=== PATIENT | male | born 1955 | race Caucasian/White ===

== ENCOUNTER → 2017-06-19 | Outpatient (CLI) | payer BC ==
[~2017-06-19] MED LIST: GINK40CA PO; MULT-974 PO; ZOLP5TAB7 PO
== END ==
LOC: PREOP 09:50
PROVIDERS: ATTEND Surgery
DX: Z01.818 Encounter for other preprocedural examination (principal); Z12.11 Encounter for screening for malignant neoplasm of colon; Z86.010 Personal history of colon polyps

== ENCOUNTER → 2017-06-21 | Day surgery (SDC) | payer BC ==
[~2017-06-21] MED LIST changes: +ACETAMINOPHEN 325 MG TABLET/CAPLET (TYLENOL) PO PRN; +HYDROcodone/APAP 5 MG/325 MG (LORTAB) TAB PO PRN; +LIDOCAINE JELLY 2% (XYLOCAINE) 5 ML TUBE MM PRN; +LIDOCAINE JELLY 2% (XYLOCAINE) 5 ML TUBE ONE; +MIDAZOLAM 2 MG/2 ML (VERSED) VIAL ONE; +NS IV 500 ML 500 ML IV PRN; +ONDANSETRON 4 MG/2 ML (SDV) Z0FRAN IV PRN; +fentaNYL INJECTION 100 MCG/2 ML AMP ONE; +morphine INJ 10 MG/ML 1ML (SYR OR VIAL) IV PRN
[2017-06-21 12:45] VITALS: BP 126/68
--- NOTE | 2017-06-21 12:58 | Conscious Sedation/ASA ---
Conscious Sedation Pre-Proced Time Reviewed: 12:45 ASA Class: 2 Airway Mallampati Classification: ([place] appropriate class) I. II. III, IV Lungs Heart ASA score ASA 1: a normal healthy patient ASA 2: a patient with a mild systemic disease (mid diabetes, controlled hypertension, obesity ASA 3: a patient with a severe systemic disease that limits activity (angina , COPD, prior Myocardial infarction) ASA 4: a patient with an incapacitating disease that is a constant threat to life (CHF, renal failure) ASA 5: a moribund patient not expected to survive 24 hrs. (ruptured aneurysm) ASA 6: a declared brain patient whose organs are being harvested. For emergent operations, add the letter E after the classification Grade 2 Sedation Plan: Analgesia, Amnesia, Plan communicated to team members, Discussed options with patient/fam, Discussed risks with patient/fam Note The patient is an appropriate candidate to undergo the planned procedure, sedation, and anesthesia. The patient immediately re-assessed prior to indication. AMARIS MCGUIRE MD Jun 21, 2017 12:58 pm
--- NOTE | 2017-06-21 12:59 | Progress Note-Pre Operative ---
Pre-Operative Progress Note H&P Reviewed The H&P was reviewed, patient examined and no changes noted. Date Seen by Provider: Jun 21, 2017 Time Seen by Provider: 12:45 Date H&P Reviewed: Jun 21, 2017 Time H&P Reviewed: 12:45 Pre-Operative Diagnosis: screening colonoscopy AMARIS MCGUIRE MD Jun 21, 2017 12:59 pm
[2017-06-21] MEDS: fentaNYL INJECTION 100 MCG/2 ML AMP IVP PRN ×4 (13:33→13:53)
[2017-06-21] MEDS: MIDAZOLAM 2 MG/2 ML (VERSED) VIAL IVP PRN ×5 (13:34→13:49)
--- NOTE | 2017-06-21 14:16 | Progress Note-Post Operative ---
Post-Operative Progess Note Surgeon (s)/Washery Engineer (s) Surgeon AMARIS MCGUIRE MD Washery Engineer: none Pre-Operative Diagnosis screening colonoscopy Post-Operative Diagnosis chronic stage 2 ext and int hemorrhoids, small HP rectum(2mm), moderate sigmoid diverticulosis. Procedure & Operative Findings Date of Procedure 06/21/17 Procedure Performed/Findings Colonoscopy with bx. Anesthesia Type CS Estimated Blood Loss Estimated blood loss (mL): minimal Specimens/Packing Specimens Removed rectal polyp AMARIS MCGUIRE MD Jun 21, 2017 2:16 pm
--- NOTE | 2017-06-21 14:18 | Discharge Inst-Surgical ---
D/C Lap Instructions-MAYNOR Follow Up 5 years. Activity as tolerated High Fiber Diet 25g or more per day Avoid Alcohol, Caffeine, Spicy Kiefer and Acid foods. Drink 64 fluid oz or more of fluids per day. Symptoms to Report: Fever over 101 degree F, Nausea/Vomiting If any problems/questions: Contact your physician or go to Emergency Room AMARIS MCGUIRE MD Jun 21, 2017 2:18 pm
[2017-06-21 14:30] VITALS: BP 97/55
[2017-06-21 15:00] VITALS: BP 98/69
[2017-06-21 15:05] VITALS: BP 98/69
--- NOTE | 2017-06-21 15:32 | OPERATIVE REPORT ---
DATE OF SERVICE: 06/21/2017 ATTENDING PRIMARY CARE PHYSICIAN: Dr. Celestina Palacios. PREOPERATIVE DIAGNOSIS: History of colon polyps. POSTOPERATIVE DIAGNOSES: 1. Chronic stage II external and internal hemorrhoids. 2. Small hyperplastic polyp of the rectum, 2 mm in size. 3. Moderate sigmoid diverticulosis. PROCEDURE: Colonoscopy with biopsy. SURGEON: Dr. Mcguire. ANESTHESIA: Conscious sedation. ESTIMATED BLOOD LOSS: Minimal. FINDINGS: Chronic stage II external and internal hemorrhoids. Prostate gland was palpable and appeared normal. Small 2 mm hyperplastic polyp in the rectum, moderate sigmoid diverticulosis. The remainder of the colon was normal. DISPOSITION: The patient tolerated the procedure well. INDICATIONS: The patient is a 62-year-old male referred over to us for followup colonoscopy. This gentleman reports that he is doing well and does not have any major issues with constipation, no diarrhea as well as no red blood per rectum nor any dark tarry stools. He has had two colonoscopies done in the past with the first one done in 2008 where he believes four to five polyps were identified including an adenomatous polyp with the recommendation for a followup colonoscopy in 3 years. He did undergo a second colonoscopy in 2011 with there were 2 polyps identified which were completely benign. The recommendation at that time was to follow up in 5 years sounding to be more consistent with a hyperplastic polyp. He does have a remote family history of colon cancer with his maternal grandfather having the disease. DESCRIPTION OF PROCEDURE: The patient was brought to the endoscopy suite, laid in the left lateral decubitus position. After adequate IV pain and sedative medications and conscious sedation anesthesia, a digital rectal examination was performed. Chronic stage II external and internal hemorrhoids were identified and were not actively edematous, not inflamed nor bleeding. Normal sphincter tone was felt and there were no palpable masses. Prostate gland was palpable and appeared normal. The endoscope was then intubated into the anus and rectum gently insufflated. A small hyperplastic polyp of the distal rectum was identified which was approximately 2 mm in size and consistent with a benign hyperplastic polyp. This was biopsied and destroyed using forceps and electrocautery with visualization of good hemostasis. Endoscope was then advanced through the remainder of the rectum, which was normal. We then proceeded through the sigmoid colon where a moderate sigmoid diverticulosis identified. There were no mucosal inflammatory changes to indicate any active diverticulitis. The endoscope was then advanced through the remainder of the descending, transverse, ascending colon and the cecum. These segments were normal. There were no other lesions identified. The endoscope was then slowly withdrawn taking a second look and suctioning residual air with no additional findings. The patient tolerated the procedure well. We will continue with medical management with high fiber diet with at least 30 grams of fiber per day as well as at least 64 fluid ounces of water daily to promote soft stools on a daily basis. We will recommend a followup colonoscopy in approximately 5 years. Job ID: [id number] DocumentID: [id number] Dictated Date: 06/21/2017 14:04:01 Relocation Associate Date: 06/21/2017 15:32:06 Dictated By: AMARIS MCGUIRE MD MTDD
== END | disposition home or self-care (01) ==
LOC: ENDO 12:28
PROVIDERS: ATTEND Surgery
DX: Z12.11 Encounter for screening for malignant neoplasm of colon (principal); K62.1 Rectal polyp; K57.30 Diverticulosis of large intestine without perforation or abscess without bleeding; K64.1 Second degree hemorrhoids; Z86.010 Personal history of colon polyps; G47.00 Insomnia, unspecified; Z79.899 Other long term (current) drug therapy

== ENCOUNTER 2019-02-05 06:15 | Outpatient (CLI) | payer BC ==
[~2019-02-05 06:15] MED LIST changes: -ACETAMINOPHEN 325 MG TABLET/CAPLET (TYLENOL) PO PRN; -HYDROcodone/APAP 5 MG/325 MG (LORTAB) TAB PO PRN; -LIDOCAINE JELLY 2% (XYLOCAINE) 5 ML TUBE MM PRN; -LIDOCAINE JELLY 2% (XYLOCAINE) 5 ML TUBE ONE; -MIDAZOLAM 2 MG/2 ML (VERSED) VIAL ONE; -NS IV 500 ML 500 ML IV PRN; -ONDANSETRON 4 MG/2 ML (SDV) Z0FRAN IV PRN; -fentaNYL INJECTION 100 MCG/2 ML AMP ONE; -morphine INJ 10 MG/ML 1ML (SYR OR VIAL) IV PRN
[2019-02-05] MEDS ORDERED: ZALE5CAP PO (11:38)
== END 2019-02-05 11:41 | disposition home or self-care (01) ==
LOC: PREOP 06:15
PROVIDERS: ATTEND Specialist
DX: Z01.818 Encounter for other preprocedural examination (principal)

== ENCOUNTER 2019-02-06 10:15 | Day surgery (SDC) | payer BC ==
[~2019-02-06] VITALS: Ht 185.4 cm; Wt 86.2 kg
[~2019-02-06 10:15] MED LIST changes: +ZALE5CAP PO
[2019-02-06 10:20] VITALS: BP 133/72
[2019-02-06] MEDS: TETRACAINE 0.5% OPHTH SOLN 4 ML BTL (SINGLE DOSE ONLY) OU PRN ×3 (10:33→10:51)
[2019-02-06] MEDS: TROPICAMIDE 1% OPH SOLN (MYDRIACYL) 15 ML BTL OU PRN ×3 (10:34→10:52)
[2019-02-06] MEDS: PHENYLEPHRINE 10% OPHTH (NEO-SYN) 5 ML BTL OU PRN ×3 (10:34→10:51)
[2019-02-06 11:23] VITALS: BP 133/72
--- NOTE | 2019-02-06 11:24 | Ophthalmologist Pre-Op Note ---
Pre-Operative Progress Note H&P Reviewed The H&P was reviewed, patient examined and no changes noted. Date H&P Reviewed: Feb 06, 2019 Time H&P Reviewed: 11:15 Pre-Op Dx Secondary Cataract, Right Eye CHASIDY SHANNON MD Feb 06, 2019 11:24
--- NOTE | 2019-02-06 11:24 | Ophthalmology Operative Report ---
YAG Capsulotomy PREOPERATIVE DIAGNOSIS: Secondary Cataract Right Eye POSTOPERATIVE DIAGNOSIS: Secondary Cataract Right Eye PROCEDURE: YAG Capsulotomy, right eye SURGEON: Jean Pierre Shannon ANESTHESIA: Topical anesthesia COMPLICATIONS: None ESTIMATED BLOOD LOSS: Minimal DESCRIPTION OF PROCEDURE: After proper informed consent was obtained, the patient's, a 63 male, right eye received one drop of Tropicamide and one drop of Tetracaine. The patient was then placed at the YAG laser and using a power of [ 3.8] millijoules and [ 14] bursts were used to fashion a central capsulotomy. The patient tolerated the procedure well without complications and the patient's pressure was [12 ] shortly after the laser. JEAN PIERRE SHANNON MD Feb 06, 2019 11:24
== END 2019-02-06 11:20 | disposition home or self-care (01) ==
LOC: SDC 10:15
PROVIDERS: ATTEND Specialist
DX: H26.491 Other secondary cataract, right eye (principal); F41.9 Anxiety disorder, unspecified; Z87.891 Personal history of nicotine dependence; Z79.899 Other long term (current) drug therapy

== ENCOUNTER 2019-02-11 12:25 | Day surgery (SDC) | payer BC ==
[~2019-02-11] VITALS: Ht 185.4 cm; Wt 86.2 kg
[2019-02-11 12:25] VITALS: BP 111/62
--- OUTSIDE RECORDS SUMMARY | 2019-02-11 12:34 | XMS REPORT | Clinical Summary ---
Author Author [facility] Organization [facility] Address Unknown Phone Unavailable Care Team Providers Care Electro Mechanical Assembler Name Role Phone Leatha Pablo JUNG Unavailable Jessika Vaz Unavailable Celestina Palacios MD PCP Gordo Palacios MD Unavailable Source Comments Some departments are not documenting in the electronic medical record. If you do not see the information that you expected, contact Release of Information in the Health Information Management department at [phone] for further assistance in locating additional records.[facility] Allergies Comments Active Allergy Reactions Severity Noted Date Seasonal Allergies RHINITIS Low 04/05/2015 Medications End Date Status Medication Sig Dispensed Refills Start Date Active Ginkgo Biloba 40 mg tab Take 120 mg 0 by mouth. Active zaleplon(+) (SONATA) 10 TAKE ONE 90 capsule 0 01/02/201 mg capsule CAPSULE BY 8 MOUTH AT BEDTIME Active Multivitamins with Take by 0 Fluoride (MULTI-VITAMIN mouth. PO) Active eszopiclone (LUNESTA) 3 Take one 30 tablet 5 11/27/201 mg tablet tablet by 9 mouth at bedtime as needed for Sleep. Active Problems Problem Noted Date Sick sinus syndrome 09/16/2015 Overview: 07/22/15: Echocardiogram: Normal LV function. EF 65%. Mild left atrial enlargement. Mild aortic and mitral valve sclerosis. 08/22/15: Stress Echo: No ischemia. No CT. Normal LV function with EF 60%. Fatigue 09/16/2015 Depression 09/16/2015 Hyperlipidemia 09/16/2015 Bradycardia 09/16/2015 Dyspnea 09/16/2015 RONI (obstructive sleep apnea) 04/06/2015 Overview: PSG 10/02/2014 [facility] sleep medicine AHI 6.3 O2 Heriberto 86%, Time <88% 12 minutes Not on therapy. Did not notice improvement in sleep L ast Assessment & Plan: He never noticed any improvement with CPAP therapy therefore we will hold for now. Insomnia 04/05/2015 Overview: He has a long history of severe chronic insomnia. He has been taking zolpidem, zaleplon and Benadryl on a nightly basis. Medication tried Benadryl Sonata Ambien L ast Assessment & Plan: For now he would like to continue taking his combination of Sonata and Ambien 5 mg. This seems to be working well for him. 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 Return to clinic in 1 year or sooner if problems. Family History Medical History Relation Name Comments Pulmonary Fibrosis Father Relation Name Status Comments Father Mother Alive Social History Date Tobacco Use Types Packs/Day Years Used Former Smoker Cigarettes Smokeless Tobacco: Former User Alcohol Use Drinks/Week oz/Week Comments Yes 14 Glasses of 8.4 wine Sex Assigned at Date Recorded Not on file Industry Job Start Date Occupation Not on file Not on file Not on file Travel End Travel History Travel Start No recent travel history available. Last Filed Vital Signs Time Taken Vital Sign Reading 06/13/2018 3:33 PM CDT Blood Pressure 134/77 06/13/2018 3:33 PM CDT Pulse 44 06/13/2018 3:33 PM CDT Temperature 36.9 C (98.5 F) 06/13/2018 3:33 PM CDT Respiratory Rate 16 06/13/2018 3:33 PM CDT Oxygen Saturation 98% - Inhaled Oxygen - Concentration 06/13/2018 3:33 PM CDT Weight 81.4 kg (179 lb 6.4 oz) 06/13/2018 3:33 PM CDT Height 185.4 cm (6' 1") 06/13/2018 3:33 PM CDT Body Mass Index 23.67 Plan of Treatment Health Maintenance Due Date Last Done Comments HEPATITIS C SCREENING 1954 PHYSICAL (COMPREHENSIVE) 1961 EXAM HIV SCREENING 1969 DTAP/TDAP VACCINES (1 - 1972 Tdap) COLORECTAL CANCER 2004 SCREENING SHINGLES RECOMBINANT 2004 VACCINE (1 of 2) INFLUENZA VACCINE 06/18/2018 Results Not on filefrom Last 3 Months Insurance Type Payer Benefit Subscriber ID Effective Phone Address Plan / Dates Group PPO BCBS [facility] xxxxxxxxxxxx 2014-P [facility] resent [place] Advance Directives Patient has advance care planning documents on file. For more information, please contact: [facility] [address] [place] [address]
--- OUTSIDE RECORDS SUMMARY | 2019-02-11 12:34 | XMS REPORT | Continuity of Care Document ---
Author Author [facility] Organization [facility] Address Unknown Phone Unavailable Allergies Active Description Code Type Severity Reaction Onset Reported/Identified Relationship to Patient Clinical Status Yes No Known Drug Allergies [id number] Drug Allergy Unknown N/A 05/20/2012 Medications There is no data. Problems Date Dx Coded Attending Type Code Diagnosis Diagnosed By 09/27/2014 SADIA DENNY MD Ot 327.23 09/12/2015 DIMAS PAYAN FAC, OZIEL CAREY CCDS Ot I49.5 09/12/2015 DIMAS PAYAN FAC, OZIEL TREVINOP CCDS Ot R53.83 09/12/2015 DIMAS PAYAN FAC, OZIEL TREVINOP CCDS Ot Z72.0 06/20/2017 AMARIS MCGUIRE MD Ot Z01.818 ENCOUNTER FOR OTHER PREPROCEDURAL EXAMIN 06/20/2017 AMARIS MCGUIRE MD Ot Z12.11 ENCOUNTER FOR SCREENING FOR MALIGNANT NE 06/20/2017 AMARIS MCGUIRE MD Ot Z86.010 PERSONAL HISTORY OF COLONIC POLYPS 06/26/2017 AMARIS MCGUIRE MD Ot G47.00 INSOMNIA, UNSPECIFIED 06/26/2017 AMARIS MCGUIRE MD Ot K57.30 DVRTCLOS OF LG INT W/O PERFORATION OR AB 06/26/2017 AMARIS MCGUIRE MD Ot K62.1 RECTAL POLYP 06/26/2017 AMARIS MCGUIRE MD, Ot K64.1 SECOND DEGREE HEMORRHOIDS 06/26/2017 AMARIS MCGUIRE MD Ot Z12.11 ENCOUNTER FOR SCREENING FOR MALIGNANT NE 06/26/2017 AMARIS MCGUIRE MD Ot Z79.899 OTHER ALF (CURRENT) DRUG THERAPY 06/26/2017 AMARIS MCGUIRE MD Ot Z86.010 PERSONAL HISTORY OF COLONIC POLYPS 06/28/2017 AMARIS MCGUIRE MD, Ot G47.00 INSOMNIA, UNSPECIFIED 06/28/2017 AMARIS MCGUIRE MD Ot K57.30 DVRTCLOS OF LG INT W/O PERFORATION OR AB 06/28/2017 AMARIS MCGUIRE MD Ot K62.1 RECTAL POLYP 06/28/2017 AMARIS MCGUIRE MD Ot K64.1 SECOND DEGREE HEMORRHOIDS 06/28/2017 AMARIS MCGUIRE MD Ot Z12.11 ENCOUNTER FOR SCREENING FOR MALIGNANT NE 06/28/2017 AMARIS MCGUIRE MD Ot Z79.899 OTHER BOOK TRIMMER (CURRENT) DRUG THERAPY 06/28/2017 AMARIS MCGUIRE MD Ot Z86.010 PERSONAL HISTORY OF COLONIC POLYPS 07/01/2017 AMARIS MCGUIRE MD Ot G47.00 INSOMNIA, UNSPECIFIED 07/01/2017 AMARIS MCGUIRE MD Ot K57.30 DVRTCLOS OF LG INT W/O PERFORATION OR AB 07/01/2017 AMARIS MCGUIRE MD Ot K62.1 RECTAL POLYP 07/01/2017 AMARIS MCGUIRE MD Ot K64.1 SECOND DEGREE HEMORRHOIDS 07/01/2017 AMARIS MCGUIRE MD Ot Z12.11 ENCOUNTER FOR SCREENING FOR MALIGNANT NE 07/01/2017 AMARIS MCGUIRE MD Ot Z79.899 OTHER ALF (CURRENT) DRUG THERAPY 07/01/2017 AMARIS MCGUIRE MD Ot Z86.010 PERSONAL HISTORY OF COLONIC POLYPS 07/15/2017 AMARIS MCGUIRE MD Ot G47.00 INSOMNIA, UNSPECIFIED 07/15/2017 AMARIS MCGUIRE MD Ot K57.30 DVRTCLOS OF LG INT W/O PERFORATION OR AB 07/15/2017 AMARIS MCGUIRE MD Ot K62.1 RECTAL POLYP 07/15/2017 AMARIS MCGUIRE MD Ot K64.1 SECOND DEGREE HEMORRHOIDS 07/15/2017 AMARIS MCGUIRE MD Ot Z12.11 ENCOUNTER FOR SCREENING FOR MALIGNANT NE 07/15/2017 AMARIS MCGUIRE MD Ot Z79.899 OTHER ALF (CURRENT) DRUG THERAPY 07/15/2017 AMARIS MCGUIRE MD Ot Z86.010 PERSONAL HISTORY OF COLONIC POLYPS 02/05/2019 CHASIDY SHANNON MD Ot Z01.818 ENCOUNTER FOR OTHER PREPROCEDURAL EXAMIN 02/09/2019 CHASIDY SHANNON MD Ot F41.9 ANXIETY DISORDER, UNSPECIFIED 02/09/2019 CHASIDY SHANNON MD Ot H26.491 OTHER SECONDARY CATARACT, RIGHT EYE 02/09/2019 CHASIDY SHANNON MD Ot Z79.899 OTHER ALF (CURRENT) DRUG THERAPY 02/09/2019 CHASIDY SHANNON MD Ot Z87.891 PERSONAL HISTORY OF NICOTINE DEPENDENCE Procedures There is no data. Results There is no data. Encounters ACCT No. Visit Date/Time Discharge Status Pt. Type Provider Facility Loc./Unit Complaint [id number] 02/06/2019 10:15:00 02/06/2019 23:59:59 CLS Outpatient CHASIDY SHANNON MD [facility] SDC YAG [id number] 02/05/2019 06:15:00 02/05/2019 11:41:00 DIS Outpatient CHASIDY SHANNON MD [facility] PREOP YAG [id number] 06/21/2017 12:28:00 06/21/2017 23:59:59 CLS Outpatient AMARIS MCGUIRE MD [facility] ENDO SCREENING,HISTORY OF POLYPS [id number] 06/19/2017 09:50:00 06/19/2017 23:59:59 CLS Outpatient AMARIS MCGUIRE MD [facility] PREOP SCREENING,HISTORY OF POLYPS [id number] 08/22/2015 10:22:00 08/22/2015 23:59:59 CLS Outpatient DIMAS PAYAN FACCOZIEL FACP CCDS [facility] CARD [id number] 09/27/2014 10:30:00 09/27/2014 11:15:00 DIS Outpatient SADIA DENNY MD [facility] SLEEP [id number] 02/11/2019 12:25:00 ACT Outpatient CHASIDY SHANNON MD [facility] SDC CATARACT LEFT EYE
[2019-02-11] MEDS: TETRACAINE 0.5% OPHTH SOLN 4 ML BTL (SINGLE DOSE ONLY) OU PRN ×4 (12:42→13:10)
[2019-02-11] MEDS ORDERED: POVIDONE (BETADINE) OPHTH SOLN 5% 30 ML OP ONE (12:45)
[2019-02-11] MEDS ORDERED: LIDOCAINE PF 1% 2 ML AMP IR PRN (12:45)
[2019-02-11] MEDS ORDERED: TIMOLOL MALEATE 0.5% 5 ML (TIMOPTIC) BTL OU PRN (12:45)
[2019-02-11] MEDS ORDERED: MOXIFLOXACIN OPHTH SOLN 5 MG/ML 0.3 ML SYRINGE OP ONE (12:45)
[2019-02-11] MEDS: PHENYLEPHRINE 10% OPHTH (NEO-SYN) 5 ML BTL OU SCH ×3 (12:55→13:10)
[2019-02-11] MEDS: CYCLOPENTOLATE 1% (CYCLOGYL) 2 ML DROPS OP SCH ×3 (12:55→13:10)
[2019-02-11] MEDS ORDERED: MIDAZOLAM 2 MG/2 ML (VERSED) VIAL ONE (12:56)
--- NOTE | 2019-02-11 13:13 | Anesthesia-General Post-Op ---
MAC Patient Condition Mental Status/LOC: Same as Preop Cardiovascular: Satisfactory Nausea/Vomiting: Absent Respiratory: Satisfactory Pain: Controlled Complications: Absent Post Op Complications Complications None Follow Up Care/Instructions Patient Instructions None needed. Anesthesiology Discharge Order Discharge Order Patient is doing well, no complaints, stable vital signs, no apparent adverse anesthesia problems. No complications reported per nursing. LINK SHABAZZ CRNA Feb 11, 2019 13:13
--- NOTE | 2019-02-11 13:25 | Ophthalmologist Pre-Op Note ---
Pre-Operative Progress Note H&P Reviewed The H&P was reviewed, patient examined and no changes noted. Date H&P Reviewed: Feb 11, 2019 Time H&P Reviewed: 13:25 Pre-Op Dx Cataract, Left Eye HCASIDY SHANNON MD Feb 11, 2019 13:25
--- NOTE | 2019-02-11 13:59 | Ophthalmology Operative Report ---
Cataract removal/placement IOL PREOPERATIVE DIAGNOSIS: Cataract Left Eye POSTOPERATIVE DIAGNOSIS: Cataract Left Eye PROCEDURE: Cataract removal and placement of posterior chamber implant, left eye SURGEON: Jean Pierre Shannon ANESTHESIA: Topical with sedation COMPLICATIONS: None ESTIMATED BLOOD LOSS: Minimal DESCRIPTION OF PROCEDURE: After proper informed consent was obtained, the patient, a 63 male, was taken to the Operating Room and the left eye was anesthetized with tetracaine. The left eye was then prepped and draped in the usual manner. A wire lid speculum was placed. A paracentesis was made at the left hand position. Preservative free lidocaine was injected into the anterior chamber followed by viscoelastic. A clear corneal incision was made in the temporal position. A capsulorrhexis was preformed and the central nuclear and cortical material were removed. The posterior capsule was polished and an Erik [id number] 22.0 was placed into the capsular bag. The residual viscoelastic was aspirated and balanced saline solution was injected into the anterior chamber. Moxifloxacin was injected into the anterior chamber. The wound was checked and found to be water tight. The patient tolerated the procedure well without complications. JEAN PIERRE SHANNON MD Feb 11, 2019 13:59
[2019-02-11] MEDS ORDERED: acetaZOLAMIDE ER 500 MG CAP (DIAMOX SEQUELS) PO ONE (14:00)
[2019-02-11 14:10] VITALS: BP 111/87
== END 2019-02-11 14:10 | disposition home or self-care (01) ==
LOC: SDC 12:25
PROVIDERS: ATTEND Specialist
DX: H25.12 Age-related nuclear cataract, left eye (principal); F41.9 Anxiety disorder, unspecified; Z87.891 Personal history of nicotine dependence; Z79.899 Other long term (current) drug therapy

== ENCOUNTER → 2019-10-23 | Outpatient (CLI) | payer BC ==
[~2019-10-23] MED LIST changes: +ASPI-999 PO; +ATOR80TA76 PO; +CEPH500T PO; +ESZO3TAB30 PO; -GINK40CA PO; +GINK40CA5 PO; +TEST30SO3 TD; +TEST75GE3 TD; +ZALE10CA PO; +[UNRECOGNIZED DRUG - OTHER] SL
== END ==
LOC: CARD 12:32
PROVIDERS: ATTEND Internal Medicine Cardiovascular Disease
DX: I45.10 Unspecified right bundle-branch block (principal); I45.89 Other specified conduction disorders; R53.83 Other fatigue
CPT/HCPCS: 93225; 93226

== ENCOUNTER → 2019-10-23 | Outpatient (CLI) | payer BC ==
[~2019-10-23] MED LIST changes: -CEPH500T PO
== END ==
LOC: CARD 12:30
PROVIDERS: ATTEND Family Medicine
DX: I49.5 Sick sinus syndrome (principal); I45.10 Unspecified right bundle-branch block; R53.83 Other fatigue; Z95.810 Presence of automatic (implantable) cardiac defibrillator
CPT/HCPCS: 93306

== ENCOUNTER 2019-10-28 05:35 | Outpatient (CLI) | payer BC ==
[~2019-10-28] VITALS: Ht 185.5 cm; Wt 77.3 kg
[~2019-10-28 05:35] MED LIST changes: -ASPI-999 PO; -ATOR80TA76 PO; -ESZO3TAB30 PO; -TEST30SO3 TD; -TEST75GE3 TD; -ZALE10CA PO; -[UNRECOGNIZED DRUG - OTHER] SL
[2019-10-28] MEDS ORDERED: ESZO3TAB30 PO (12:17)
[2019-10-28] MEDS ORDERED: TEST30SO3 TD (12:17)
[2019-10-30] MEDS ORDERED: ZALE10CA PO (13:46)
[2019-10-30] MEDS ORDERED: TEST75GE3 TD (13:52)
[2019-10-30] MEDS ORDERED: [UNRECOGNIZED DRUG - OTHER] SL (13:55)
[2019-10-30] MEDS ORDERED: ATOR80TA76 PO (15:58)
[2019-10-30] MEDS ORDERED: ASPI-999 PO (15:58)
== END 2019-10-28 12:30 ==
LOC: PREOP 05:35
PROVIDERS: ATTEND Specialist
DX: Z01.818 Encounter for other preprocedural examination (principal)

== ENCOUNTER 2019-10-30 10:52 | Day surgery (SDC) | payer BC ==
[~2019-10-30] VITALS: Ht 185 cm; Wt 77.3 kg
[~2019-10-30 10:52] MED LIST changes: +ESZO3TAB30 PO; +TEST30SO3 TD
[2019-10-30] MEDS: TETRACAINE 0.5% OPHTH SOLN 4 ML BTL (SINGLE DOSE ONLY) OU PRN ×3 (11:07→11:19)
[2019-10-30 11:10] VITALS: BP 118/69
[2019-10-30] MEDS ORDERED: TROPICAMIDE 1% OPH SOLN (MYDRIACYL) 15 ML BTL OU PRN (11:15)
[2019-10-30] MEDS ORDERED: PHENYLEPHRINE 10% OPHTH (NEO-SYN) 5 ML BTL OU PRN (11:15)
--- NOTE | 2019-10-30 11:29 | Ophthalmologist Pre-Op Note ---
Pre-Operative Progress Note H&P Reviewed The H&P was reviewed, patient examined and no changes noted. Date H&P Reviewed: Oct 30, 2019 Time H&P Reviewed: 11:29 Pre-Op Dx Secondary Cataract, Right Eye CHASIDY SHANNON MD Oct 30, 2019 11:29 POS
[2019-10-30 11:50] VITALS: BP 118/69
--- NOTE | 2019-10-30 11:53 | Ophthalmology Operative Report ---
YAG Capsulotomy PREOPERATIVE DIAGNOSIS: Secondary Cataract Left Eye POSTOPERATIVE DIAGNOSIS: Secondary Cataract Left Eye PROCEDURE: YAG Capsulotomy, left eye SURGEON: Jean Pierre Shannon ANESTHESIA: Topical anesthesia COMPLICATIONS: None ESTIMATED BLOOD LOSS: Minimal DESCRIPTION OF PROCEDURE: After proper informed consent was obtained, the patient's, a 64 male left eye received one drop of Tropicamide and one drop of Tetracaine. The patient was then placed at the YAG laser and using a power of [2.8 ] millijoules and [ 12] bursts were used to fashion a central capsulotomy. The patient tolerated the procedure well without complications. JEAN PIERRE SHANNON MD Oct 30, 2019 11:53 POS
[2019-10-30] MEDS ORDERED: ZALE10CA PO ×2 (13:46)
[2019-10-30] MEDS ORDERED: TEST75GE3 TD ×2 (13:52)
[2019-10-30] MEDS ORDERED: [UNRECOGNIZED DRUG - OTHER] SL ×2 (13:55)
[2019-10-30] MEDS ORDERED: ASPI-999 PO ×2 (15:58)
[2019-10-30] MEDS ORDERED: ATOR80TA76 PO ×2 (15:58)
== END 2019-10-30 11:50 | disposition home or self-care (01) ==
LOC: SDC 10:52
PROVIDERS: ATTEND Specialist
DX: H26.492 Other secondary cataract, left eye (principal); F41.9 Anxiety disorder, unspecified; Z79.899 Other long term (current) drug therapy; Z87.891 Personal history of nicotine dependence

== ENCOUNTER 2019-10-30 13:00 | Day surgery (SDC) | payer BC ==
[~2019-10-30] VITALS: Ht 185 cm; Wt 77.3 kg
[2019-10-30] VITALS (8 sets, daily range): BP systolic 99–135; BP diastolic 68–88
[2019-10-30] MEDS ORDERED: LIDOCAINE 1% INJ 20 ML 20 ML VIAL ONE (13:02)
[2019-10-30] MEDS ORDERED: HEParin 1000 UNIT/ML (10ML VIAL) FOR BOLUS ONE (13:02)
[2019-10-30] MEDS ORDERED: NS IV 1000 ML 1,000 ML ONE (13:03)
[2019-10-30] MEDS ORDERED: NS IV 1000 ML 2,000 ML ONE (13:03)
[2019-10-30] MEDS ORDERED: NS IV 1000 ML 1,000 ML IV SCH ×2 (13:04→15:54)
[2019-10-30 13:25] LABS: HEMOGLOBIN 13.8 G/DL (13.3-17.7); MEAN PLATELET VOLUME 9.8 FL (7.4-10.4); RED CELL DISTRIBUTION WIDTH 13.1 % (10.0-14.5); WHITE BLOOD COUNT 3.4 10^3/uL (4.3-11.0)
[2019-10-30] MEDS ORDERED: ZALE10CA PO ×2 (13:46)
[2019-10-30] MEDS ORDERED: TEST75GE3 TD ×2 (13:52)
[2019-10-30 13:53] LABS: INR 1.1 (0.8-1.4); PROTHROMBIN TIME PATIENT 14.2 SEC (12.2-14.7)
[2019-10-30 13:54] LABS: ALANINE AMINOTRANSFERASE 18 U/L (0-55); ALBUMIN 4.4 GM/DL (3.2-4.5); ALKALINE PHOSPHATASE 78 U/L (40-136); BILIRUBIN,TOTAL 0.4 MG/DL (0.1-1.0); BUN/CREATININE RATIO 15; CALCIUM 9.3 MG/DL (8.5-10.1); CARBON DIOXIDE 26 MMOL/L (21-32); CHLORIDE 106 MMOL/L (98-107); CHOLESTEROL 222 MG/DL (< 200); CREATININE SERUM 0.93 MG/DL (0.60-1.30); GFR ESTIMATED > 60; GLUCOSE 86 MG/DL (70-105); HDL CHOLESTEROL 72 MG/DL (40-60); POTASSIUM 4.4 MMOL/L (3.6-5.0); SODIUM 139 MMOL/L (135-145); TOTAL PROTEIN 7.7 GM/DL (6.4-8.2); TRIGLYCERIDES 81 MG/DL (<150); VLDL CHOLESTEROL 16 MG/DL (5-40)
[2019-10-30] MEDS ORDERED: [UNRECOGNIZED DRUG - OTHER] SL ×2 (13:55)
--- NOTE | 2019-10-30 13:56 | NUR ---
SPOKE WITH THE PT (HE HAD HIS HOME MEDS) AND CALLED [facility] TO COMPLETE THE MED REC.\ HE WAS ABLE TO TELL ME HOW/WHEN HE TAKES EACH MED. THE FOLLOWING [facility]: 03-24-2019 ZALEPLON #90/90DS 09-16-2019 LUNESTA #90/90DS 10-23-2019 TESTOSTERONE (MAIL ORDER) #1 /30DS OTC MEDS: MTV GINKO BILOBA CBD
[2019-10-30] MEDS ORDERED: fentaNYL INJECTION 100 MCG/2 ML AMP ONE (14:05)
[2019-10-30] MEDS ORDERED: MIDAZOLAM 5 MG/5 ML (VERSED) VIAL ONE (14:05)
[2019-10-30] MEDS ORDERED: diphenhydrAMINE 50 MG/ML INJ (BENADRYL) ONE (15:15)
[2019-10-30] MEDS ORDERED: ASPI-999 PO ×2 (15:58)
[2019-10-30] MEDS ORDERED: ATOR80TA76 PO ×2 (15:58)
--- NOTE | 2019-10-30 15:59 | Discharge Inst-Post CATH ---
Discharge Inst-CATH/EP Post Cardiac Cath/EP D/C Inst Follow Up/Plan F/u with Dr Ni next week ACTIVITY * Go Home directly and rest. * Limit activity of the leg (or wrist if it was used) for 7 days including aerobics, swimming, jogging, bicycling, etc. * Restrict stair-climbing for 7 days if possible, if not, climb up with your no n-cath leg, then bring together on the same step. * Avoid lifting, pushing, pulling or excessive movement of the affected ext remity for 7 days. * Customary sexual activity may be resumed after 2 days-use caution not to use a position that strains or causes pain to the affected extremity. * No driving for 24 hours. * NO SMOKING. * Avoid straining for bowel movements for 7 days. * Gentle walking on level ground is allowed. * Returning to work will depend on the type of procedure and the results. Your doctor will discuss this with you. CALL YOUR DOCTOR FOR ANY OF THE FOLLOWING: *If bleeding from the puncture site occurs- Apply gentle pressure to site with clean cloth and call your doctor or EMS. * If a knot or lump forms under the skin, increases in size, or causes pain. * If bruising appears to be worsening or moving further down your leg instead of disappearing. * Temperature above 101 F. CARE OF YOUR GROIN INCISION; * Bruising or purple discoloration of the skin near the puncture site is common. * You may shower only, no bathtub bathing for 5 days. Be careful to avoid slipping as your leg may feel stiff. * If a closure device was used on your femoral artery, please see the attached guide regarding care of the device and your leg. * Leave dressing on FOR 24 hours. CARE OF YOUR WRIST INCISION; * Bruising or purple discoloration of the skin near the puncture site is common. * You may shower. * DO NOT submerge wrist. * Leave dressing on FOR 24 hours. OZIEL NI MD FACP FAC CCDS Oct 30, 2019 15:59 POS
--- NOTE | 2019-10-30 15:59 | Discharge Inst-Cardiology ---
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
[2019-10-30] MEDS ORDERED: PATIENT MAY USE OWN MEDS, ALL PO SCH (16:00)
--- NOTE | 2019-10-30 17:50 | Cardiac Procedure Note-CS/ASA ---
Pre-Procedure Note Pre-Op Procedure Note H&P Reviewed The H&P was reviewed, patient examined and no changes noted. Date H&P Reviewed: Oct 30, 2019 Time H&P Reviewed: 15:20 Conscious Sedation Pre-Proced Time 15:20 ASA Score 3 For ASA 3 and 4: Consider anesthesia and medical clearance. Also, for patients with a history of failed moderate sedation consider anesthesia. Airway Lungs Heart ASA score ASA 1: a normal healthy patient ASA 2: a patient with a mild systemic disease (mid diabetes, controlled hypertension, obesity ASA 3: a patient with a severe systemic disease that limits activity (angina, COPD, prior Myocardial infarction) ASA 4: a patient with an incapacitating disease that is a constant threat to life (CHF, renal failure) ASA 5: a moribund patient not expected to survive 24 hrs. (ruptured aneurysm) ASA 6: a declared brain- patient whose organs are being harvested. For emergent operations, add the letter E after the classification Mallampati Classification Grade 2 Sedation Plan Analgesia, Amnesia, Plan communicated to team members, Discussed options with patient/fam, Discussed risks with patient/fam The patient is an appropriate candidate to undergo the planned procedure, sedation, and anesthesia. The patient immediately re-assessed prior to indication. OZIEL COCHRAN MD FACP FAC CCDS Oct 30, 2019 17:50 POS
--- NOTE | 2019-10-30 19:22 | CARDIAC CATHETERIZATION ---
DATE OF SERVICE: CARDIAC CATHETERIZATION REPORT The patient is a 64-year-old man who has symptoms of marked fatigue and the electrocardiogram is abnormal that indicates right bundle branch block that appears new since the last electrocardiogram of 2014. He has a history of tobacco use, which he quit in 2009. Cardiac catheterization was carried out today after having obtained an informed consent. DESCRIPTION OF PROCEDURE: The patient was brought to the cardiac catheterization laboratory in a fasting state. Right groin was prepared and draped in the usual sterile fashion. Lidocaine 1% was used for local anesthesia. Modified Seldinger technique was used to advance a 5-Kazakh sheath in the right femoral artery, 5-Kazakh JL4 catheter used for left coronary angiography, 5-Kazakh JR4 catheter used for right coronary angiography, 5-Kazakh pigtail catheter was used for left heart catheterization and left ventricular angiography. Angiography of the right femoral artery was carried out through the sheath. Mynx was used to achieve hemostasis. He tolerated the procedure well. HEMODYNAMICS: Left ventricular end-diastolic pressure following coronary angiography was 12 mmHg. There was no significant pressure gradient on pullback across the aortic valve. Ascending aortic pressure was 105/60 with a mean of 69 mmHg. CORONARY ANGIOGRAPHY: Left main coronary artery is free of significant disease. Left anterior descending artery has significant coronary calcification in its mid portion. There does not appear to be significant obstructive disease. Left circumflex artery is nondominant and does not exhibit significant disease. Right coronary artery is dominant and does not exhibit significant disease. LEFT VENTRICULAR ANGIOGRAPHY: Left ventricular angiography was carried out in right anterior oblique projection. Global left ventricular systolic function is normal. No regional wall motion abnormalities seen. Left ventricular ejection fraction is approximately 65% CONCLUSIONS: 1. Mild to moderate coronary artery disease consisting of approximately 40% mid vessel stenosis and coronary calcification. 2. Normal global left ventricular systolic function with ejection fraction approximately 60%. 3. Normal left ventricular end-diastolic pressure. DISCUSSION AND RECOMMENDATIONS: Based on results of the study, it appears appropriate to continue a conservative approach. Risk factor modification is advised. We advised the therapy with low dose aspirin and with statins. We have advised him to continue to refrain from tobacco use. Outpatient followup is advised. Job ID: [id number] DocumentID: [id number] Dictated Date: 10/30/2019 15:48:45 Press Reader Date: 10/30/2019 19:21:27 Dictated By: OZIEL COCHRAN MD, MA, FACP, FACC,
== END 2019-10-30 20:30 | disposition home or self-care (01) ==
LOC: CATH 13:00 → ICU 16:02 → CATH 20:30
PROVIDERS: ATTEND Internal Medicine Cardiovascular Disease
DX: I25.10 Atherosclerotic heart disease of native coronary artery without angina pectoris (principal); I45.10 Unspecified right bundle-branch block; I49.5 Sick sinus syndrome; G47.30 Sleep apnea, unspecified; H93.19 Tinnitus, unspecified ear; F17.210 Nicotine dependence, cigarettes, uncomplicated; F41.9 Anxiety disorder, unspecified; F32.9 Major depressive disorder, single episode, unspecified; Z79.899 Other long term (current) drug therapy; Z80.9 Family history of malignant neoplasm, unspecified; Z82.49 Family history of ischemic heart disease and other diseases of the circulatory system
CPT/HCPCS: 36415; 80053; 80061; 85027; 85610; 85730; 87081; 93453

== ENCOUNTER 2019-11-06 12:36 | Emergency (ER) | payer BC ==
[~2019-11-06] VITALS: Ht 185.4 cm; Wt 77.1 kg
[~2019-11-06 12:36] MED LIST changes: +ASPI-999 PO; +ATOR80TA76 PO; +TEST75GE3 TD; +ZALE10CA PO; +[UNRECOGNIZED DRUG - OTHER] SL
--- NOTE | 2019-11-06 13:32 | ED Lower Extremity ---
General Chief Complaint: General Problems/Pain Stated Complaint: HEMATOMA BLEEDING FROM CATH PROCEDURE Nursing Triage Note: PT AMB TO RM 8 WITH COMPLAINT OF SWELLING AROUND HEARTH CATH SIGHT RIGHT GROIN. STATES WENT TO DR JACKSON OFFICE ON SATURDAY. DENIES BEING ON A BLOOD THINNER, BUT DOES TAKE ASA. Nursing Sepsis Screen: No Definite Risk Source: patient Exam Limitations: no limitations (CASTILLO SOLIZ,LORENA STUDENT) History of Present Illness Date Seen by Provider: Nov 06, 2019 Time Seen by Provider: 13:02 Initial Comments Pt complains of bulge in right lower extremity near groin. States he underwent cardiac catheterization last week and states he has developed a hematoma two days later at catheter insertion site. Was seen by Dr. Cochran in clinic and was told to go to the ER. Denies leg swelling, pain, edema, chest pain, shortness of breath, headache. Takes a baby aspirin but no other blood thinners. Onset: last week Pain/Injury Location: right leg Method of Injury: other (catheter insertion) (CASTILLO SOLIZ MED STUDENT) Initial Comments Here with report of small amount of bleeding from the area of the heart catheter site to the right groin overnight. Also notes swelling in the area but not pulsating. Seen here for further evaluation. 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, 2 PUMP TD DAILY, (Reported) APPLIES TO THE RIGHT ARM Zaleplon 10 Mg Capsule, 10 MG PO PRN PRN for INSOMNIA, (Reported) TAKES IN THE MIDDLE OF THE NIGHT UPON AWAKENING [Cdb Oil] , 1,000 MG SL HS, (Reported) 1 DROPPERFUL IS 1000MG Patient Home Medication List Home Medication List Reviewed: Yes (CASTILLO SOLIZ,MED STUDENT) Home Medication List Reviewed: Yes (TYESHA BRADY MD) Review of Systems Constitutional: No chills, No fever; malaise (generalized malaise ongoing for years, working up with primary doc ) EENTM: No hearing loss, No ear pain, No eye pain, No vision loss Respiratory: No cough, No dyspnea on exertion, No short of breath Cardiovascular: No chest pain; Hx of Intervention Gastrointestinal: No abdominal pain, No constipation, No diarrhea, No nausea, No vomiting Genitourinary: No discharge, No incontinence, No pain Musculoskeletal: No back pain, No joint pain Skin: No lesions, No lumps Psychiatric/Neurological: Denies Anxiety, Denies Depressed (CASTILLO SOLIZ MED STUDENT) Constitutional: No chills, No fever Cardiovascular: No chest pain, No edema Gastrointestinal: No abdominal pain, No nausea, No vomiting Musculoskeletal: No joint pain; muscle pain Skin: change in color (TYESHA BRADY MD) Past Asxlebq-Khdpkt-Ypdgau Hx Past Med/Social Hx: Reviewed Nursing Past Med/Soc Hx (TYESHA BRADY MD) Patient Social History Alcohol Use: Regular Use Alcohol Beverage of Choice: Wine Recreational Drug Use: No Smoking Status: Never a Smoker Recent Foreign Travel: No Contact w/Someone Who Travel: No Recent Infectious Disease Expo: No Recent Hopitalizations: No Physical Abuse: No Sexual Abuse: No Mistreated: No Fear: No (CASTILLO SOLIZ MED STUDENT) Immunizations Up To Date Tetanus Booster (TDap): Unknown PED Vaccines UTD: Yes (CASTILLO SOLIZ MED STUDENT) Seasonal Allergies Seasonal Allergies: No (CASTILLO SOLIZ MED STUDENT) Past Medical History Orthopedic Respiratory: Yes (ASTHMA A CHILD) Sleep Apnea Currently Using CPAP: No (USED PREVIOUSLY) Cardiac: Yes (BRADYCARDIA) Irregular Heartbeat Neurological: Yes Concussion Reproductive Disorders: No Genitourinary: No Gastrointestinal: Yes Polyps Cancer: No Blood Disorders: No Adverse Reaction/Blood Tranf: No (CASTILLO SOLIZ MED STUDENT) Family Medical History Reviewed Nursing Family Hx (TYESHA BRADY MD) Physical Exam Vital Signs Vital Signs - First Documented 11/06/19 12:46 Pulse 82 Resp 20 B/P (MAP) 151/89 (109) Pulse Ox 99 O2 Delivery Room Air (TYESHA BRADY MD) Vital Signs Capillary Refill : Less Than 3 Seconds (CASTILLO SOLIZ,MED STUDENT) Height, Weight, BMI Height: 6'1.00" Weight: 190lbs. 0.0oz. 86.002969zw; 22.00 BMI Method: General Appearance: WD/WN, no apparent distress Neck: non-tender, supple Cardiovascular: regular rate, rhythm, no edema, no murmur, gallop/S3 Respiratory: chest non-tender, lungs clear, normal breath sounds, no respirat ory distress, no accessory muscle use Gastrointestinal: non tender, soft Back: no CVA tenderness, no vertebral tenderness Legs: right leg ecchymosis (large below catheterization site ), right leg swelling (3cm nodule, mild purplish discoloration at catheter site. Drains serosanginous fluid) Neurologic/Psychiatric: alert, oriented x 3 Skin: normal color, warm/dry (CASTILLO SOLZI,MED STUDENT) General Appearance: WD/WN, no apparent distress Cardiovascular: regular rate, rhythm, no murmur Respiratory: lungs clear, normal breath sounds Legs: right leg other (right groin site with ecchymosis and 3 x 6 cm area of induration that is nonpulsatile. Serosanguineous drainage from catheter insertion site in small amounts. Not significantly tender on evaluation.) Neurologic/Psychiatric: alert, oriented x 3 Skin: warm/dry, ecchymosis (right groin and upper leg) (TYESHA BRADY MD) Progress/Results/Core Measures Results/Orders Lab Results Laboratory Tests Test 11/06/19 14:32 Range/Units White Blood Count 3.6 L 4.3-11.0 10^3/uL Red Blood Count 4.27 L 4.35-5.85 10^6/uL Hemoglobin 14.0 13.3-17.7 G/DL Hematocrit 41 40-54 % Mean Corpuscular Volume 97 80-99 FL Mean Corpuscular Hemoglobin 33 25-34 PG Mean Corpuscular Hemoglobin Concent 34 32-36 G/DL Red Cell Distribution Width 12.6 10.0-14.5 % Platelet Count 182 130-400 10^3/uL Mean Platelet Volume 9.9 7.4-10.4 FL Neutrophils (%) (Auto) 57 42-75 % Lymphocytes (%) (Auto) 25 12-44 % Monocytes (%) (Auto) 15 H 0-12 % Eosinophils (%) (Auto) 3 0-10 % Basophils (%) (Auto) 1 0-10 % Neutrophils # (Auto) 2.0 1.8-7.8 X 10^3 Lymphocytes # (Auto) 0.9 L 1.0-4.0 X 10^3 Monocytes # (Auto) 0.5 0.0-1.0 X 10^3 Eosinophils # (Auto) 0.1 0.0-0.3 10^3/uL Basophils # (Auto) 0.0 0.0-0.1 10^3/uL Sodium Level 137 135-145 MMOL/L Potassium Level 4.5 3.6-5.0 MMOL/L Chloride Level 106 98-107 MMOL/L Carbon Dioxide Level 22 21-32 MMOL/L Anion Gap 9 5-14 MMOL/L Blood Urea Nitrogen 11 7-18 MG/DL Creatinine 0.78 0.60-1.30 MG/DL Estimat Glomerular Filtration Rate > 60 BUN/Creatinine Ratio 14 Glucose Level 86 70-105 MG/DL Calcium Level 9.4 8.5-10.1 MG/DL Corrected Calcium 9.2 8.5-10.1 MG/DL Total Bilirubin 0.5 0.1-1.0 MG/DL Aspartate Amino Transf (AST/SGOT) 40 H 5-34 U/L Alanine Aminotransferase (ALT/SGPT) 28 0-55 U/L Alkaline Phosphatase 81 40-136 U/L Total Protein 7.4 6.4-8.2 GM/DL Albumin 4.2 3.2-4.5 GM/DL (TYESHA BRADY MD) My Orders Orders - TYESHA BRADY MD Right Low Ext [id number] (11/06/19 12:48) Cbc With Automated Diff (11/06/19 14:04) Comprehensive Metabolic Panel (11/06/19 14:04) Ed Iv/Invasive Line Start (11/06/19 14:04) (TYESHA BRADY MD) Vital Signs/I&O 11/06/19 12:46 Pulse 82 Resp 20 B/P (MAP) 151/89 (109) Pulse Ox 99 O2 Delivery Room Air (TYESHA BRADY MD) Blood Pressure Mean: 109 Progress Progress Note : Time: 14:31 Progress Note Seen and evaluated. Ordered CBC, CMP and bedside USG for evaluation of hematoma at cath site. (CASTILLO SOLIZ,MED STUDENT) Progress Note : Progress Note Seen and evaluated. Ultrasound right lower extremity in the area of the heart catheter puncture site. Results below. I discussed the case with Dr. Cochran. Given current findings we will hold direct pressure and then discharged home. I discussed the case with Dr. Oakes, and he will see him at 9 AM on Saturday in his office. This is discussed with the patient who agrees. Discharged home with return precautions. Patient verbalize understanding instructions and agreement with plan. (TYESHA BRADY MD) Diagnostic Imaging Diagonstic Imaging: Ultrasound Plain Films/CT/US/NM/MRI: leg Comments [facility], [place] NAME: ASHA ORELLANA MED REC#: [id number] PT STATUS: REG ER : 1955 PHYSICIAN: TYESHA BRADY MD ADMIT DATE: 11/06/19/ER Draft Date of Exam:11/06/19 US RIGHT LOW EXT [id number] EXAMINATION: Right lower extremity arterial Doppler. INDICATION: Post cardiac catheterization. TECHNIQUE: Spectral and color-flow imaging of the right lower extremity arterial system was performed. COMPARISON: There are no prior studies available for comparison. FINDINGS: There is a linear vascular structure extending from the superficial femoral artery anteriorly. This measures approximately 1 x 2 cm. At the tip of this area, there is a 2 x 3 cm area of mixed echogenicity. This could represent a partially thrombosed pseudoaneurysm. No other abnormality is identified. IMPRESSION: 1. There is an abnormal communication between the superficial femoral artery and the skin. There may be a partially thrombosed pseudoaneurysm in this area. 2. These results were discussed with Dr. Brady in the ER. Dictated on workstation # [id number] Dict: 11/06/19 1439 Trans: 11/06/19 1448 [id number] Interpreted by: KHALIDA KAPADIA MD Electronically signed by: (CASTILLO SOLIZ,MED STUDENT) Departure Impression Primary Impression: Postoperative hematoma Qualified Codes: L76.32 - Postprocedural hematoma of skin and subcutaneous tissue following other procedure Disposition: 01 HOME, SELF-CARE Condition: Stable Departure-Patient Inst. Decision time for Depature: 15:26 (TYESHA BRADY MD) Referrals: Milagros OAKES MD, RACHEL L MD (PCP/Family) Primary Care Physician Patient Instructions: HEMATOMA Add. Discharge Instructions: All discharge instructions reviewed with patient and/or family. Voiced understanding. Continued discharge instructions after the heart catheter event as discussed then including limiting lifting and careful movement when walking up and down the steps. You need to follow-up with Dr. Oakes at his office at 9 AM on Saturday morning. Return for worse pain, swelling, increasing bleeding, numbness or tingling of the leg or other concerns as needed. Copy Copies To 1: Milagros OAKES MD Copies To 2: OZIEL COCHRAN MD FACP FACC CCDS CASTILLO SOLIZ,MED STUDENT Nov 06, 2019 13:32 TYESHA BRADY MD Nov 06, 2019 15:27
[2019-11-06 14:43] LABS: BASOPHILS % (AUTO) 1 % (0-10); EOSINOPHILS # (AUTO) 0.1 10^3/uL (0.0-0.3); EOSINOPHILS % (AUTO) 3 % (0-10); HEMATOCRIT 41 % (40-54); LYMPHOCYTES # (AUTO) 0.9 X 10^3 (1.0-4.0); LYMPHOCYTES % (AUTO) 25 % (12-44); MEAN CORPUSCULAR HEMOGLOBIN 33 PG (25-34); MEAN CORPUSCULAR HGB CONC 34 G/DL (32-36); MEAN CORPUSCULAR VOLUME 97 FL (80-99); MEAN PLATELET VOLUME 9.9 FL (7.4-10.4); MONOCYTES # (AUTO) 0.5 X 10^3 (0.0-1.0); MONOCYTES % (AUTO) 15 % (0-12); NEUTROPHILS % (AUTO) 57 % (42-75); PLATELET COUNT 182 10^3/uL (130-400); RED CELL DISTRIBUTION WIDTH 12.6 % (10.0-14.5); WHITE BLOOD COUNT 3.6 10^3/uL (4.3-11.0)
--- NOTE | 2019-11-06 14:48 | Diagnostic Imaging Report ---
EXAMINATION: Right lower extremity arterial Doppler. INDICATION: Post cardiac catheterization. TECHNIQUE: Spectral and color-flow imaging of the right lower extremity arterial system was performed. COMPARISON: There are no prior studies available for comparison. FINDINGS: There is a linear vascular structure extending from the superficial femoral artery anteriorly. This measures approximately 1 x 2 cm. At the tip of this area, there is a 2 x 3 cm area of mixed echogenicity. This could represent a partially thrombosed pseudoaneurysm. A hematoma could also present in this manner. No other abnormality is identified. IMPRESSION: 1. There is an abnormal vascular communication between the superficial femoral artery and the adjacent soft tissues.. There may be a partially thrombosed pseudoaneurysm and/or hematoma in this area. 2. These results were discussed with Dr. Gilliam in the ER. Dictated by: Dictated on workstation # [id number]
[2019-11-06 15:08] LABS: ALANINE AMINOTRANSFERASE 28 U/L (0-55); ALBUMIN 4.2 GM/DL (3.2-4.5); ALKALINE PHOSPHATASE 81 U/L (40-136); BILIRUBIN,TOTAL 0.5 MG/DL (0.1-1.0); BUN/CREATININE RATIO 14; CALCIUM 9.4 MG/DL (8.5-10.1); CARBON DIOXIDE 22 MMOL/L (21-32); CHLORIDE 106 MMOL/L (98-107); CREATININE SERUM 0.78 MG/DL (0.60-1.30); GFR ESTIMATED > 60; GLUCOSE 86 MG/DL (70-105); POTASSIUM 4.5 MMOL/L (3.6-5.0); SODIUM 137 MMOL/L (135-145); TOTAL PROTEIN 7.4 GM/DL (6.4-8.2)
[2019-11-06 15:35] VITALS: BP 169/88
== END 2019-11-06 15:35 | disposition home or self-care (01) ==
LOC: EDUNIT# 12:36 → ER 12:38
DX: L76.32 Postprocedural hematoma of skin and subcutaneous tissue following other procedure (principal); J45.909 Unspecified asthma, uncomplicated; Z87.820 Personal history of traumatic brain injury; Z95.9 Presence of cardiac and vascular implant and graft, unspecified; Z79.82 Long term (current) use of aspirin
CPT/HCPCS: 36415; 80053; 85025; 93926; 99281

== ENCOUNTER 2019-11-09 12:01 | Emergency (ER) | payer BC ==
[~2019-11-09] VITALS: Ht 185.4 cm; Wt 77.2 kg
--- NOTE | 2019-11-09 12:35 | ED Integumentary General ---
General Chief Complaint: Skin/Wound Problems Stated Complaint: WOUND NOT HEALING AFTER HEART CATH Source: patient Exam Limitations: no limitations History of Present Illness Date Seen by Provider: Nov 09, 2019 Time Seen by Provider: 12:36 Initial Comments To ER with reports of a wound not healing to the right groin after heart cathete r 10 days ago. He was seen here a few days ago for some bleeding at the site, ultrasound was obtained and showed concern for a partially thrombosed pseudoaneurysm. Subsequent to direct pressure was held for 30 minutes. He was discharged home. Since being seen here in the ER at that time he reports the size and tenderness of this has decreased. There is no more bleeding. He followed up at Dr. Ni's office today, there was concern for infection in this area secondary to "hair follicle" he states, he was subsequently referred to the emergency room. He denies fevers or chills. Timing/Duration: just prior to arrival Severity: moderate Location: extremities Associated Symptoms: denies symptoms Allergies and Home Medications Allergies Coded Allergies: No Known Drug Allergies (Unverified , 05/20/12) Home Medications Aspirin 81 Mg Tab.chew, 81 MG PO DAILY Prescribed by: OZIEL NI on 10/30/19 1558 Atorvastatin Calcium 80 Mg Tablet, 80 MG PO DAILY Prescribed by: OZIEL NI on 10/30/19 1558 Cephalexin 500 Mg Tablet, 500 MG PO QID Prescribed by: TRIPP SALAZAR on 11/09/19 1249 Eszopiclone 3 Mg Tablet, 3 MG PO HS, (Reported) Ginkgo Biloba 40 Mg Capsule, 40 MG PO DAILY, (Reported) Multivitamin 1 Each Tablet, 1 EACH PO DAILY, (Reported) Testosterone 75 Gm Gel.process trainer, 2 PUMP TD DAILY, (Reported) APPLIES TO THE RIGHT ARM Zaleplon 10 Mg Capsule, 10 MG PO PRN PRN for INSOMNIA, (Reported) TAKES IN THE MIDDLE OF THE NIGHT UPON AWAKENING [Cdb Oil] , 1,000 MG SL HS, (Reported) 1 DROPPERFUL IS 1000MG Patient Home Medication List Home Medication List Reviewed: Yes Review of Systems Review of Systems Constitutional: see HPI; No chills, No fever EENTM: see HPI Respiratory: no symptoms reported Cardiovascular: no symptoms reported Genitourinary: no symptoms reported Musculoskeletal: no symptoms reported Skin: see HPI Psychiatric/Neurological: No Symptoms Reported Endocrine: No Symptoms Reported Hematologic/Lymphatic: No Symptoms Reported Past Ngzbshd-Eajdkd-Maoqpd Hx Patient Social History Alcohol Beverage of Choice: Wine Recent Hopitalizations: No Immunizations Up To Date Tetanus Booster (TDap): Unknown PED Vaccines UTD: Yes Seasonal Allergies Seasonal Allergies: No Past Medical History Orthopedic Respiratory: Yes (ASTHMA A CHILD) Sleep Apnea Currently Using CPAP: No (USED PREVIOUSLY) Cardiac: Yes (BRADYCARDIA) Irregular Heartbeat Neurological: Yes Concussion Reproductive Disorders: No Genitourinary: No Gastrointestinal: Yes Polyps Cancer: No Blood Disorders: No Adverse Reaction/Blood Tranf: No Physical Exam Vital Signs Vital Signs - First Documented 11/09/19 12:16 Temp 37.2 Pulse 62 Resp 18 B/P (MAP) 127/74 (91) Pulse Ox 98 Capillary Refill : General Appearance: WD/WN, no apparent distress HEENT: PERRL/EOMI, normal ENT inspection Neck: non-tender, full range of motion Respiratory: no respiratory distress, no accessory muscle use Neurologic/Psychiatric: alert, normal mood/affect, oriented x 3 Skin: normal color, warm/dry Skin Problem Location: lower extremities Skin Problem Character: other (to the right groin there is a quarter sized area of hematoma with what appears to be a very small central pustule about 1-2 mm. There is no erythema surrounding this there is some purplish discoloration to the area, purplish/yellow bruising to the medial aspect of the right thigh as well. Non pulsatile) Progress/Results/Core Measures Results/Orders Vital Signs/I&O 11/09/19 12:16 Temp 37.2 Pulse 62 Resp 18 B/P (MAP) 127/74 (91) Pulse Ox 98 Diagnostic Imaging Diagonstic Imaging: Ultrasound Comments IMPRESSION: 1. There is an abnormal vascular communication between the superficial femoral artery and the adjacent soft tissues.. There may be a partially thrombosed pseudoaneurysm and/or hematoma in this area. 2. These results were discussed with Dr. Gilliam in the ER. This was the ultrasound report from a few days ago Departure Communication (Admissions) [id number]-attempted to call Dr. Ni via paging and his office to ask if there was something in particular he wanted done in ER. office is closed at this time for the holidays. Not entirely clear to me what was hoped to be gained by emergency room evaluation. I'll prescribe some Keflex and have him follow-up next week. Impression Primary Impression: Hematoma of groin Qualified Codes: S30.1XXA - Contusion of abdominal wall, initial encounter Disposition: 01 HOME, SELF-CARE Condition: Improved Departure-Patient Inst. Decision time for Depature: 12:47 Referrals: SADIA DENNY MD (PCP/Family) Primary Care Physician Patient Instructions: Wound Care (DC) Add. Discharge Instructions: 1. Antibiotics as directed. At this time since you've been bleeding from the site recently, I'm hesitant to open this small area that appears to be a pustule. We will try oral antibiotics, this hematoma/firmness should continue to reduce in size over the next 1-2 weeks. If you notice increasing size, recurrent bleeding, increasing redness or any other concerns return to the emergency room. Otherwise take antibiotics as directed and continue with your current activities of daily living. All discharge instructions reviewed with patient and/or family. Voiced understanding. Scripts Cephalexin (Cephalexin) 500 Mg Tablet 500 MG PO QID, #20 TAB 0 Refills Prov: TRIPP SALAZAR APRN 11/09/19 Copy Copies To 1: OZIEL NI MD [facility] TRIPP SALAZAR APRN Nov 09, 2019 12:35
[2019-11-09] MEDS ORDERED: CEPH500T PO (12:49)
[2019-11-09 13:05] VITALS: BP 127/74
== END 2019-11-09 13:04 | disposition home or self-care (01) ==
LOC: EDUNIT# 12:01 → ER 12:02
DX: S30.1XXA Contusion of abdominal wall, initial encounter (principal); J45.909 Unspecified asthma, uncomplicated; Z87.820 Personal history of traumatic brain injury; Z79.82 Long term (current) use of aspirin; X58.XXXA Exposure to other specified factors, initial encounter
CPT/HCPCS: 99282

== ENCOUNTER → 2021-04-20 | Outpatient (CLI) | payer BC ==
[~2021-04-20] MED LIST changes: +CATHETER FLUSH 10 ML SYR IV PRN; +CEPH500T PO; +HOLD METFORMIN - RECEIVED CONTRAST 20 ML VIAL IV SCH; +IOHEXOL 350 MG/ML 100 ML (OMNIPAQUE 350) VIAL IV ONE; +NS 100 ML (IVPB) BAG IV ONE
[2021-04-20 13:41] LABS: CHLORIDE 107 MMOL/L (98-107); POTASSIUM 4.8 MMOL/L (3.6-5.0); SODIUM 139 MMOL/L (135-145)
[2021-04-20 13:43] LABS: CALCIUM 9.4 MG/DL (8.5-10.1); GLUCOSE 94 MG/DL (70-105)
[2021-04-20 13:44] LABS: CARBON DIOXIDE 24 MMOL/L (21-32)
[2021-04-20 13:47] LABS: CREATININE SERUM 0.89 MG/DL (0.60-1.30); GFR ESTIMATED > 60
[2021-04-20 13:48] LABS: BUN/CREATININE RATIO 15
--- NOTE | 2021-04-20 15:23 | Diagnostic Imaging Report ---
PROCEDURE: CT head with and without contrast. TECHNIQUE: Multiple contiguous axial images were obtained through the brain before and after the administration of intravenous contrast. Auto Exposure Controls were utilized during the CT exam to meet ALARA standards for radiation dose reduction. INDICATION: Unsteadiness, chronic fatigue, difficulty with sleeping, dizziness. COMPARISON: I have no relevant comparison. EXAMINATION: Pre and post contrasted CT head performed. Multiplanar reconstructions. FINDINGS: Intracranial atherosclerotic vascular calcifications. Brain volume appears normal. No hemorrhage, hydrocephalus, edema, mass or mass effect. After contrast was administered, there was no abnormal or suspicious parenchymal or meningeal enhancement, There is normal enhancement of the major dural venous sinuses. There is no evidence for an elevation of the intracranial pressures. Orbits, sinuses and calvarium are within normal limits. IMPRESSION: No acute or suspicious abnormality at pre and post contrasted CT head. Dictated by: Dictated on workstation # [id number]
== END ==
LOC: RAD 13:18
PROVIDERS: ATTEND Family Medicine
DX: G47.9 Sleep disorder, unspecified (principal); R26.9 Unspecified abnormalities of gait and mobility; R41.3 Other amnesia; R53.82 Chronic fatigue, unspecified; R42 Dizziness and giddiness
CPT/HCPCS: 36415; 70470; 80048

== ENCOUNTER 2022-11-14 07:55 | Outpatient (CLI) | payer SELFPAY ==
[~2022-11-14] VITALS: Ht 185.4 cm; Wt 79.6 kg
[~2022-11-14 07:55] MED LIST changes: -CATHETER FLUSH 10 ML SYR IV PRN; -HOLD METFORMIN - RECEIVED CONTRAST 20 ML VIAL IV SCH; -IOHEXOL 350 MG/ML 100 ML (OMNIPAQUE 350) VIAL IV ONE; -NS 100 ML (IVPB) BAG IV ONE
[2022-11-15] MEDS ORDERED: [UNRECOGNIZED DRUG - CODE] PO (11:14)
[2022-11-15] MEDS ORDERED: TADA5TAB13 PO (11:14)
[2022-11-15] MEDS ORDERED: DICL100G13 TP (11:14)
== END 2022-11-15 11:15 ==
LOC: PREOP 07:55
PROVIDERS: ATTEND Surgery
DX: Z01.818 Encounter for other preprocedural examination (principal); Z12.11 Encounter for screening for malignant neoplasm of colon; Z86.010 Personal history of colon polyps

== ENCOUNTER 2022-11-21 09:25 | Day surgery (SDC) | payer MEDICARE, OTHER ==
[~2022-11-21] VITALS: Ht 185.2 cm; Wt 79.6 kg
[~2022-11-21 09:25] MED LIST changes: +DICL100G13 TP; +TADA5TAB13 PO; +[UNRECOGNIZED DRUG - CODE] PO
[2022-11-21] MEDS ORDERED: LACTATED RINGERS 1,000 ML IV STA (09:36)
[2022-11-21] MEDS ORDERED: MIDAZOLAM 2 MG/2 ML (VERSED) VIAL ONE (09:42)
[2022-11-21] MEDS ORDERED: PROPOFOL INJECTION 0 ML IV ONE (09:42)
[2022-11-21] MEDS ORDERED: LIDOCAINE JELLY 2% 6 ML SYRINGE MM PRN (09:45)
[2022-11-21 10:00] VITALS: BP 134/88
--- NOTE | 2022-11-21 10:40 | Progress Note-Pre Operative ---
Pre-Operative Progress Note Date of Available H&P: Nov 21, 2022 Date H&P Reviewed: Nov 21, 2022 Time H&P Reviewed: 10:00 History & Physical: No changes noted Pre-Operative Diagnosis: screening colo, hx of polyps AMARIS MCGUIRE MD Nov 21, 2022 10:40
--- NOTE | 2022-11-21 10:41 | Discharge Inst-Surgical ---
D/C Lap Instructions-[place] Follow Up Activity as tolerated High Fiber Diet 25g or more per day Avoid Alcohol, Caffeine, Spicy [place] and Acid foods. Drink 64 fluid oz or more of fluids per day. Symptoms to Report: Fever over 101 degree F, Nausea/Vomiting If any problems/questions: Contact your physician or go to Emergency Room AMARIS MCGUIRE MD Nov 21, 2022 10:41
[2022-11-21] MEDS ORDERED: ONDANSETRON 4 MG/2 ML (SDV) Z0FRAN IVP PRN (10:45)
[2022-11-21] MEDS ORDERED: ONDANSETRON 4 MG (ZOFRAN) ORAL DISSOLVE TAB PO PRN (10:45)
[2022-11-21] MEDS ORDERED: PROPOFOL INJECTION 50 ML IV ONE (10:58)
[2022-11-21 11:05] VITALS: BP 85/52
[2022-11-21 11:10] VITALS: BP 91/53
--- NOTE | 2022-11-21 11:13 | Progress Note-Post Operative ---
Post-Operative Progess Note Surgeon (s)/Athletic Instructor (s) Surgeon AMARIS MCGUIRE MD Athletic Instructor: none Pre-Operative Diagnosis screening colo, hx of polyps Post-Operative Diagnosis chronic stage 2 ext and int hemorrhoids, moderate to severe sigmoid and descending diverticulosis. Procedure & Operative Findings Date of Procedure 11/21/22 Procedure Performed/Findings colonoscopy Anesthesia Type mac Estimated Blood Loss Estimated blood loss (mL): minimal Specimens/Packing Specimens Removed none AMARIS MCGUIRE MD Nov 21, 2022 11:13
--- NOTE | 2022-11-21 11:16 | Anesthesia-General Post-Op ---
MAC Patient Condition Mental Status/LOC: Same as Preop Cardiovascular: Satisfactory Nausea/Vomiting: Absent Respiratory: Satisfactory Pain: Controlled Complications: Absent Post Op Complications Complications None Follow Up Care/Instructions Patient Instructions None needed. Anesthesiology Discharge Order Discharge Order Patient is doing well, no complaints, stable vital signs, no apparent adverse anesthesia problems. No complications reported per nursing. CHRISTOPHER BARAHONA CRNA Nov 21, 2022 11:15
[2022-11-21 11:25] VITALS: BP 126/77
--- NOTE | 2022-11-21 18:46 | OPERATIVE REPORT ---
DATE OF SERVICE: 11/21/2022 ATTENDING PRIMARY CARE PHYSICIAN: Dr. Sudheer Bonner. PREOPERATIVE DIAGNOSIS: Screening colonoscopy with history of colon polyps. POSTOPERATIVE DIAGNOSES: Chronic stage II external and internal hemorrhoids, moderate to severe sigmoid and descending colonic diverticulosis. PROCEDURE: Colonoscopy. SURGEON: Dr. Mcguire. ANESTHESIA: Monitored anesthesia care. ESTIMATED BLOOD LOSS: Minimal. FINDINGS: Chronic stage II external and internal hemorrhoids, moderate to severe sigmoid and descending colonic diverticulosis. DISPOSITION: The patient tolerated the procedure well. INDICATIONS FOR PROCEDURE: The patient is a 67-year-old male with history of polyps. He reports that his first colonoscopy was in 2008 and three polyps were identified, which were biopsied and found to be benign. He then underwent another colonoscopy in 2011 and again two polyps identified, biopsied and found to be benign. He then reports another followup colonoscopy was done in 2016 where a hyperplastic polyp of the rectum was identified. He is again here for followup colonoscopy. He states that he is otherwise doing well. Does not report any abdominal pain as well as no red blood per rectum, nor any dark tarry stools. He also does not report any family history of colon cancer. DESCRIPTION OF PROCEDURE: The patient was brought to the endoscopy suite and laid in the left lateral decubitus position. After adequate IV pain and sedative medications and monitored anesthesia care, digital rectal examination was performed which revealed chronic stage II external and internal hemorrhoids. Normal sphincter tone was felt and there were no palpable masses. Prostate gland was palpable and appeared normal. The endoscope was then intubated in the anus, rectum and gently insufflated. The endoscope was then advanced to the valves of Benítez of the rectum with no polyps or neoplasms identified. Through the sigmoid colon as well as the descending colon, a moderate to severe diverticulosis was identified. There were no mucosal inflammatory changes to indicate any active diverticulitis. The endoscope was then advanced through the remainder of the descending and transverse colon to the cecum, which were normal. There were no polyps or any neoplasms identified. The endoscope was then slowly withdrawn while taking a second look and suctioning all residual air with no additional findings. The patient tolerated the procedure well. We will recommend the necessary lifestyle and dietary accommodation including high-fiber diet with addition of a fiber supplement, which would equal or exceed 30 grams daily to promote soft consistency stools on a daily basis. With the softer stools, this will hopefully prevent any complications of his current diverticulosis and help mitigate further propagation of them. No polyps were identified and he does not have any family history of colon cancer, so if he is asymptomatic, he does not need another colonoscopy for another 10 years. Job ID: [id number] DocumentID: [id number] Dictated Date: 11/21/2022 11:12:06 Coat Joiner Date: 11/21/2022 18:45:00 Dictated By: AMARIS MCGUIRE MD
== END 2022-11-21 11:40 | disposition home or self-care (01) ==
LOC: ENDO 09:25
PROVIDERS: ATTEND Surgery
DX: Z12.11 Encounter for screening for malignant neoplasm of colon (principal); K57.30 Diverticulosis of large intestine without perforation or abscess without bleeding; K64.1 Second degree hemorrhoids; K64.4 Residual hemorrhoidal skin tags; Z86.010 Personal history of colon polyps; Z80.0 Family history of malignant neoplasm of digestive organs; Z87.891 Personal history of nicotine dependence
CPT/HCPCS: G0105

== ENCOUNTER → 2023-01-29 | Outpatient (CLI) | payer MEDICARE, OTHER ==
--- NOTE | 2023-01-29 14:49 | Diagnostic Imaging Report ---
EXAMINATION: Left foot radiographs, 3 views. COMPARISON: None. HISTORY: 67-year-old male, left foot pain. 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 There is no identified acute fracture. There is no subluxation or dislocation. The joint spaces are well preserved. There is no bone erosion. IMPRESSION: Unremarkable radiographs of the left foot. Dictated by: Dictated on workstation # [id number]
== END ==
LOC: RAD 12:23
PROVIDERS: ATTEND Family Medicine
DX: M79.672 Pain in left foot (principal)
CPT/HCPCS: 73630